=== PATIENT | male | born 1930 | race Caucasian/White ===

== ENCOUNTER → 2019-10-17 | Outpatient (CLI) | payer MEDICARE, OTHER ==
[~2019-10-17] MED LIST: ACIPHEX; ASP81CT; ASP81TEC PO; CATHETER FLUSH 10 ML SYR IV PRN; CHOL10003 PO; CTRZ10T; DOXE10CA PO; EZET1TAB44 PO; GBPN300C PO; GLYB1.252 PO; HOLD METFORMIN - RECEIVED CONTRAST 20 ML VIAL IV SCH; HYDR25CA5; IOHEXOL 350 MG/ML 100 ML (OMNIPAQUE 350) VIAL IV ONE; LISI10TA PO; METO25TA PO; MTP25TSR; MULT-608 PO; NIAC1CAP PO; NS 100 ML (IVPB) BAG IV ONE; OMEG-12 PO; OMEP-10 PO; OMG1KC; POTA10TA36 PO; QNPR10T; RANI150T66 PO; TRIA1CAP4 PO; VYTORIN; [UNRECOGNIZED DRUG - OTHER]
[2019-10-17 13:25] LABS: CREATININE SERUM 1.37 MG/DL (0.60-1.30)
--- NOTE | 2019-10-17 14:05 | Diagnostic Imaging Report ---
PROCEDURE: CT neck soft tissue with contrast. TECHNIQUE: Multiple contiguous axial images were obtained through the neck after the administration of contrast. Auto Exposure Controls were utilized during the CT exam to meet ALARA standards for radiation dose reduction. INDICATION: Left neck swelling. Bilateral parotid masses. COMPARISON: None. FINDINGS: Bilateral parotid masses are visualized. A large partially cystic mass is seen in the left parotid lobe measuring approximately 2.6 x 2.8 cm and 3.2 cm craniocaudal. A heterogeneous nodule in the right parotid lobe measures 1.6 x 1.3 cm and 1.7 cm craniocaudal. Multiple smaller lesions are seen in the bilateral parotid glands. No pathologically enlarged lymphadenopathy is seen. The posterior nasopharynx and oropharynx demonstrate appropriate symmetry. There is no displacement of the parapharyngeal fat planes. There is no abnormal process evident within the prevertebral or retropharyngeal space. There is no evidence of abnormal thickening of the epiglottis or aryepiglottic folds. The vocal folds appear symmetric. The submandibular and thyroid gland are unremarkable. The vascular structures the neck demonstrate no evidence of high-grade stenosis on this nondedicated exam. The visualized lung apices are clear. The visualized intracranial contents demonstrate no evidence of pathologic intracranial enhancement or intracranial mass effect. Visualized orbital contents are unremarkable. The visualized paranasal sinuses are clear. The mastoids and middle ears are clear. Degenerative changes are seen throughout the cervical spine. There is grade 1 anterolisthesis of C5 on C6. No acute fracture or dislocation is seen in the cervical spine. IMPRESSION: 1. Bilateral parotid masses, some of which demonstrate cystic features. 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 However, aggressive malignancy is not excluded and surgical consultation is recommended. No evidence of pathologically enlarged lymphadenopathy. 2. Symmetric and patent aerodigestive tract. Dictated by: Dictated on workstation # [id number]
== END ==
LOC: RAD 12:43
PROVIDERS: ATTEND Otolaryngology Otolaryngology/Facial Plastic Surgery
DX: K11.8 Other diseases of salivary glands (principal); R22.1 Localized swelling, mass and lump, neck
CPT/HCPCS: 36415; 70491; 82565; 84520

== ENCOUNTER 2021-02-20 10:15 | Outpatient (RCR) | payer MEDICARE, OTHER ==
[~2021-02-20 10:15] MED LIST changes: -CATHETER FLUSH 10 ML SYR IV PRN; -HOLD METFORMIN - RECEIVED CONTRAST 20 ML VIAL IV SCH; -IOHEXOL 350 MG/ML 100 ML (OMNIPAQUE 350) VIAL IV ONE; -NS 100 ML (IVPB) BAG IV ONE
== END 2021-03-05 13:05 | disposition home or self-care (01) ==
PROVIDERS: ATTEND Internal Medicine
DX: I89.0 Lymphedema, not elsewhere classified (principal)